=== PATIENT | female | born 2000 ===

== ENCOUNTER 2024-03-15 18:48 | Inpatient (IN) | payer MEDICAID, OTHER ==
[2024-03-15] MEDS ORDERED: MAG HYDROX/AL HYDROX/SIMETH 355 ML BOTTLE PO PRN (19:00)
[2024-03-15] MEDS ORDERED: LORazepam 2 MG/ML INJ IM PRN (19:00)
[2024-03-15] MEDS ORDERED: MAGNESIUM HYDROXIDE 2,400 MG/30 ML CUP PO PRN (19:00)
[2024-03-15] MEDS ORDERED: IBUPROFEN 600 MG TAB PO PRN (19:00)
[2024-03-15] MEDS ORDERED: LORazepam 1 MG TAB PO PRN (19:00)
[2024-03-15] MEDS ORDERED: haloperidoL 5 MG TAB PO PRN (19:00)
[2024-03-15] MEDS ORDERED: HALOPERIDOL LACTATE 5 MG/ML 1 ML VIAL IM PRN (19:00)
[2024-03-15] MEDS ORDERED: ACETAMINOPHEN TAB 325 MG TAB PO PRN (19:00)
[2024-03-15] MEDS: METHADONE 10 MG TAB PO SCH (23:17)
[2024-03-15] MEDS: QUEtiapine 200 MG TAB PO SCH (23:17)
[2024-03-16 07:41] LABS: Basophils % (A) 0 %; Eosinophils # (A) 0.2 k/uL (0-0.7); Eosinophils % (A) 7 %; HCT 37.8 % (34.0-46.0); HGB 12.2 gm/dL (11.4-16.0); Lymphocytes # (A) 1.4 k/uL (1.0-4.8); Lymphocytes % (A) 44 %; MCHC 32.3 g/dL (31.0-37.0); MCV 86.5 fL (80.0-100.0); Monocytes # (A) 0.1 k/uL (0-1.0); Monocytes % (A) 4 %; Neutrophils # (A) 1.4 k/uL (1.3-7.7); Neutrophils % (A) 43 %; Platelet Count 155 k/uL (150-450); RBC 4.37 m/uL (3.80-5.40); RDW 13.6 % (11.5-15.5); WBC 3.3 k/uL (3.8-10.6)
[2024-03-16 08:53] LABS: ALT 9 U/L (4-34); AST 14 U/L (14-36); African American GFR (CKD) >90 (>60 ml/min/1.73 sqM); Albumin 3.5 g/dL (3.5-5.0); Alkaline Phosphatase 100 U/L (38-126); Anion Gap 7 mmol/L; Blood Urea Nitrogen 11 mg/dL (7-17); Calcium 9.5 mg/dL (8.4-10.2); Carbon Dioxide 26 mmol/L (22-30); Chloride 105 mmol/L (98-107); Glucose 88 mg/dL (74-99); Non-African American GFR(CKD) >90 (>60 ml/min/1.73 sqM); Potassium 4.2 mmol/L (3.5-5.1); Sodium 138 mmol/L (137-145); Total Bilirubin 0.4 mg/dL (0.2-1.3); Total Protein 6.1 g/dL (6.3-8.2)
[2024-03-16] MEDS: NICOTINE 14MG/24HR PATCH TRANSDERM SCH (12:40)
[2024-03-16] MEDS: DULoxetine HCL 30 MG CAPSULE.DR PO SCH (12:40)
[2024-03-16] MEDS: METHADONE 10 MG TAB PO ONE (12:41)
--- NOTE | 2024-03-16 12:41 | P.HP ---
Psychiatric H&P - . H&P Date: 03/16/24 History & Physical: Allergies Allergy/AdvReac Type Severity Reaction Status Date / Time No Known Allergies Allergy Verified 03/15/24 18:50 Vital Signs Temp 98 F 03/15/24 23:23 Pulse 96 03/15/24 23:23 Resp 14 03/15/24 23:23 BP 120/83 03/15/24 23:23 Pulse Ox 97 03/15/24 23:23 FiO2 Intake & Output 03/15/24 03/16/24 03/16/24 18:59 06:59 18:59 Weight 52 kg 52.673 kg Laboratory Last Values WBC 3.3 k/uL (3.8-10.6) L 03/16/24 07:20 RBC 4.37 m/uL (3.80-5.40) 03/16/24 07:20 Hgb 12.2 gm/dL (11.4-16.0) 03/16/24 07:20 Hct 37.8 % (34.0-46.0) 03/16/24 07:20 MCV 86.5 fL (80.0-100.0) 03/16/24 07:20 MCH 28.0 pg (25.0-35.0) 03/16/24 07:20 MCHC 32.3 g/dL (31.0-37.0) 03/16/24 07:20 RDW 13.6 % (11.5-15.5) 03/16/24 07:20 Plt Count 155 k/uL (150-450) 03/16/24 07:20 MPV 8.0 03/16/24 07:20 Neutrophils % 43 % 03/16/24 07:20 Lymphocytes % 44 % 03/16/24 07:20 Monocytes % 4 % 03/16/24 07:20 Eosinophils % 7 % 03/16/24 07:20 Basophils % 0 % 03/16/24 07:20 Neutrophils # 1.4 k/uL (1.3-7.7) 03/16/24 07:20 Lymphocytes # 1.4 k/uL (1.0-4.8) 03/16/24 07:20 Monocytes # 0.1 k/uL (0-1.0) 03/16/24 07:20 Eosinophils # 0.2 k/uL (0-0.7) 03/16/24 07:20 Basophils # 0.0 k/uL (0-0.2) 03/16/24 07:20 Sodium 138 mmol/L (137-145) 03/16/24 07:20 Potassium 4.2 mmol/L (3.5-5.1) 03/16/24 07:20 Chloride 105 mmol/L (98-107) 03/16/24 07:20 Carbon Dioxide 26 mmol/L (22-30) 03/16/24 07:20 Anion Gap 7 mmol/L 03/16/24 07:20 BUN 11 mg/dL (7-17) 03/16/24 07:20 Creatinine 0.68 mg/dL (0.52-1.04) 03/16/24 07:20 Est GFR (CKD-EPI)AfAm >90 (>60 ml/min/1.73 sqM) 03/16/24 07:20 Est GFR (CKD-EPI)NonAf >90 (>60 ml/min/1.73 sqM) 03/16/24 07:20 Glucose 88 mg/dL (74-99) 03/16/24 07:[address] Glu mg/dL 97 mg/dL 03/16/24 07:20 Hemoglobin A1c 5.0 % (<=6.0) 03/16/24 07:20 Calcium 9.5 mg/dL (8.4-10.2) 03/16/24 07:20 Total Bilirubin 0.4 mg/dL (0.2-1.3) 03/16/24 07:20 AST 14 U/L (14-36) 03/16/24 07:20 ALT 9 U/L (4-34) 03/16/24 07:20 Alkaline Phosphatase 100 U/L (38-126) 03/16/24 07:20 Total Protein 6.1 g/dL (6.3-8.2) L 03/16/24 07:20 Albumin 3.5 g/dL (3.5-5.0) 03/16/24 07:20 TSH 6.080 mIU/L (0.465-4.680) H 03/16/24 07:20 03/16/24 11:54 IDENTIFYING DATA: Patient is a 24-year-old female, single, lives with her mother and stepfather and also brother. She has 1 kid. She is unemployed HPI: Patient was a transfer from [facility] arrived yesterday to the mental health unit. According to EPS note "Pt transferred from [facility]. Pt became overwhelmed at home after an argument with her mother. Pt took an entire bottle of Flexeril in a suicide attempt. Pt is very tearful, minimizes attempt. No signs of macarena, denies HI. Pt was discharged from rehab 2 weeks ago for treatment for cocaine use and has had past suicide attempts. Pt goes to a Methadone clinic". patient was agreeable to speak to hand sign writer today. Patient was fairly cooperative today during conversation. She states that she tried to overdose as a suicide attempt by overdosing on 60 tablets of Flexeril. Claims that she also took her methadone that morning at 120 mg. She was found by her mother at home the EMS was called brought to the hospital. States that she was intubated and in the ICU for several days. She states that she has been finding it difficult to stay clean and sober. Claims that she has been feeling very overwhelmed claims that she has been dealing with a lot of anxiety lately. States that she is feeling also impulsive in nature and also was describing history of pot possible manic episodes with a lot of energy flight of ideas decreased need for sleep. States that she currently she is feeling more depressed, reporting anxiety. States that she feels her medications are not helping her enough. Denying any paranoia at this time. Patient denies any suicidal or homicidal ideations intent or plan. At this time patient denies any auditory or visual hallucinations. Patient denies any flight of ideas racing thoughts and increased in goal directed behavior. Patient admits to using Xanax off the streets, claims that she has been taking 2 mg tablets about once a day. States that she is also on methadone 120 mg daily dosing at [facility] in [place]. Claims that she also smokes cigarettes. She states that she has a history of IV drug use PAST PSYCHIATRIC HISTORY: Patient has a history of IV drug use, mood disorder, anxiety. She states that she was previously on Seroquel and Zoloft. States that the Zoloft has not been helping her much however the Seroquel does help her. She claims that she was last psychiatrically hospitalized at [facility] several years ago. Patient denies any psychiatric outpatient follow-up. States that at the age of [age] years old she attempted to cut herself. PMH: Claims that she does have hepatitis C however believes that it is inactive ALLERGIES: as per EMR CHEMICAL DEPENDENCY HISTORY: as per HPI FAMILY PSYCHIATRIC/SUBSTANCE USE HISTORY: Claims that there is significant mental illness in her family, claims that there is a lot of depression and other issues in her father side. States that her mother has likely borderline personality disorder. Claims that her grandmother has depression and anxiety SOCIAL HISTORY: Patient was born and raised in [facility] and then moved to [place] where she currently lives. States that she completed up to 11th grade in school. States that she lives with her mother mindi and brother in the house. She has 1 kid. She is unemployed, she is single. MENTAL STATUS EXAM: General Appearance: Patient appears to be thin, stated age is alert, directable, and attempts to cooperate. Patient appears to have poor hygiene and grooming. Behavior: Patient is seated without any agitated behavior. Attempts to cooperate. Fair eye contact Speech: Patient's speech is fluent and nonpressured. Mood/Affect: Patient reports their mood is "depressed and anxious", affect is congruent and constricted. Suicidality/Homicidality: Patient denies having any homicidal ideation intent or plan. Denies any suicidal ideations intent or plan Perceptions: Patient denies any visual hallucinations and denies any auditory hallucinations Though content/process: There is no evidence of any delusional thought content and thought process is linear and goal-directed. Focused on her treatment and medications Memory and concentration: AOX3, grossly intact for the purposes of this session. Can spell "WORLD" backwards Judgment and insight: Poor STRENGTHS/WEAKNESSES: strength is that patient is resilient. Weakness is that patient has poor judgment and is impulsive INTELLECT: Average IMPRESSIONS: Suicide attempt by overdose of medications Depressive disorder unspecified, rule out bipolar depression Anxiety disorder unspecified Opioid use disorder, currently on agonist therapy Benzodiazepine abuse Nicotine dependence PLAN: -Patient is admitted under voluntary status to MHU for stabilization of psychiatric symptoms and safety. Patient has signed adult voluntary form and medication consent and is placed in patient's chart. -Medications : Start Cymbalta 30 mg daily for mood/anxiety, increase Seroquel to 250 mg nightly for mood stabilization/insomnia. Patient's home dose of methadone is 120 mg daily however patient has been off this dose for several days. This dose has been verified by nurses with biomed. Will increase dose to 100 mg daily and attempt to increase further with the goal of 120 mg daily back to her regular dose. -EKG ordered -HIV and hepatitis panel ordered. Patient signed consent for HIV testing and provided brochure -Ativan and Haldol PRN for agitation/aggression -Patient was counselled on substance abuse and desired to cut back on use and Will offer patient subtance use rehab -Patient was informed of the risks, benefits and side effects of the medication and patient verbally consented to taking the medications. Patient signed med consent form and was placed in chart. -Internal Medicine consult to perform medical evaluation and physical. -NRT -nicotine patch -SW on board for discharge planning. Encourage patient to participate in groups to work on coping skills. 03/16/24 12:33
[2024-03-16 16:07] LABS: LDL Cholesterol,Calculated 69.6 mg/dL (0.0-131.0)
[2024-03-16] MEDS: QUEtiapine 100 MG TAB PO SCH (20:26)
--- NOTE | 2024-03-16 21:10 | P.MDCNMH ---
<Tate Byrnes - Last Filed: 03/16/24 22:55> History of Present Illness H&P Date: 03/16/24 History of present illness; 24-year-old female arrives to the mental health unit following hospitalization at [facility] following a suicide attempt in which she took an entire bottle of Flexeril. She had previously been discharged from rehab approximately 2 weeks ago for treatment for cocaine use and she has had previous suicide attempts. Additionally she attends a methadone clinic. Patient denies any suicidal or homicidal ideations intent or plan. She admits to using Xanax which emerges off the streets, 2 mg tablets about once daily. She also takes methadone 120 mg daily (via dosing at [facility] in [place]). She has a history of IV drug use. She still smokes cigarettes. At time of in [facility] patient admitted to the having thin, grayish vaginal discharge. Additionally, she mentioned being to to begin new cycle of treatment for her chronic hepatitis C with Mavyret. Otherwise, she has no current complaints. REVIEW OF SYSTEMS: All systems reviewed, pertinent positives and negatives noted in HPI. All other symptoms are negative. PHYSICAL EXAMINATION: Vitals reviewed GENERAL: No acute distress. Well developed, well nourished. HEENT: Pupils are round and equally reacting to light. EOMI. No scleral icterus. Normocephalic, atraumatic. CARDIOVASCULAR: S1 and S2 present. No murmurs, rubs, or gallops. PULMONARY: Chest is clear to auscultation, no wheezing, rhonchi, or crackles. MUSCULOSKELETAL: No apparent joint swelling and deformities. EXTREMITIES: No apparent cyanosis, clubbing, or pedal edema. NEUROLOGICAL: The patient is alert and oriented x3, Gross neurological examination did not reveal any focal deficits. 5/5 strength bilateral UE and LE; CN2-12 intact, without gross abnormality. SKIN: No rash noted. Assessment and plan 24-year-old female present at the health unit as a transfer from [facility] where she was hospitalized following a suicide attempt in which she took an entire bottle of Flexeril. #Leukopenia -On arrival WBCs 3.3 -Hepatitis acute panel and HIV tests currently pending #Bacterial vaginosis -Treatment started with Flagyl 500 mg p.o. twice daily Chronic Medical Conditions #Nicotine dependence -Maintained on nicotine patch 14 mg/24 hr #Chronic hepatitis C infection -Maintained at home on Mavyret -Due to start next 8-week cycle of treatment (patient states that she has medication at home) #Suicidal ideation/attempt -Psychological medications per the primary psychiatry team Code status: Full code Patient is stable from medical stand point Past Medical History Additional Past Medical History / Comment(s): Hep C, HIV exposure History of Any Multi-Drug Resistant Organisms: None Reported Smoking Status: Current every day smoker Past Alcohol Use History: None Reported Past Drug Use History: Cocaine, Heroin Medications and Allergies Home Medications Medication Instructions Recorded Confirmed Type QUEtiapine [SEROquel] 200 mg PO HS 03/15/24 03/15/24 History Methadone HCl [Methadone Intensol] 120 mg PO DAILY 03/16/24 03/16/24 History Allergies Allergy/AdvReac Type Severity Reaction Status Date / Time No Known Allergies Allergy Verified 03/15/24 18:50 Physical Exam Vitals: Vital Signs Temp Pulse Resp BP Pulse Ox 03/16/24 12:41 93 100/66 03/15/24 23:23 98 F 96 14 120/83 97 Intake and Output 03/16/24 03/16/24 03/16/24 06:59 14:59 22:59 Other: Weight 52.673 kg Results CBC & Chem 7: 03/16/24 07:20 03/16/24 07:20 Labs: Abnormal Lab Results - Last 24 Hours (Table) 03/16/24 03/16/24 Range/Units 07:20 07:20 WBC 3.3 L (3.8-10.6) k/uL Total Protein 6.1 L (6.3-8.2) g/dL Triglycerides 231.00 H (0.00-149.00) mg/dL VLDL Cholesterol, Calc 46.20 H (5.00-40.00) mg/dL HDL Cholesterol 32.20 L (40.00-60.00) mg/dL TSH 6.080 H (0.465-4.680) mIU/L <Mary Alice Gandhi - Last Filed: 03/17/24 01:05> History of Present Illness I have seen and evaluated the patient today. I Discussed the case with the resident and agree with the resident's findings I edited the assessment and plan as necessary as documented in the resident's note. Physical Exam Vitals: Vital Signs Pulse BP 03/16/24 12:41 93 100/66 Cranial Nerve Examination - Cranial Nerves Cranial Nerve II- Optic: Intact Cranial Nerve III- Oculomotor: Intact Cranial Nerve IV- Trochlear: Intact Cranial Nerve V- Trigeminal: Intact Cranial Nerve - Abducens: Intact Cranial Nerve VII- Facial: Intact Cranial Nerve VIII- Auditory: Intact Cranial Nerve IX- Glossopharyngeal: Intact Cranial Nerve X- Vagus: Intact Cranial Nerve XI- Accessory: Intact Cranial Nerve XII- Hypoglossal: Intact Results CBC & Chem 7: 03/16/24 07:20 03/16/24 07:20 Labs: Abnormal Lab Results - Last 24 Hours (Table) 03/16/24 03/16/24 Range/Units 07:20 07:20 WBC 3.3 L (3.8-10.6) k/uL Total Protein 6.1 L (6.3-8.2) g/dL Triglycerides 231.00 H (0.00-149.00) mg/dL VLDL Cholesterol, Calc 46.20 H (5.00-40.00) mg/dL HDL Cholesterol 32.20 L (40.00-60.00) mg/dL TSH 6.080 H (0.465-4.680) mIU/L
[2024-03-17] MEDS: METHADONE 10 MG TAB PO SCH (08:45)
--- NOTE | 2024-03-17 09:49 | P.PN ---
Progress Note - Text Progress Note Date: 03/17/24 Interval History: Patient was seen today for psychiatric follow up. She was interacting with ot her patients today. She claims that she is still feeling fairly anxious, claims that her mood has been improving mildly. Denying any problems with her medications at this time. States that she has tried BuSpar in the past however was willing to try Vistaril as needed today for anxiety. Claims that she was able to sleep about 6 or 7 hours last night. He claims that she is going to some groups. At this time is not reporting any suicidal homicidal ideations intent or plan, denying any auditory or visual hallucinations. MENTAL STATUS EXAM: General Appearance: Patient appears to be thin, stated age is alert, directable, and attempts to cooperate. Patient appears to have mildly improving hygiene and grooming. Behavior: Patient is seated without any agitated behavior. Attempts to rodríguez ate. Fair eye contact Speech: Patient's speech is fluent and nonpressured. Mood/Affect: Patient reports their mood is "mostly anxious", affect is congruent and constricted. Suicidality/Homicidality: Patient denies having any homicidal ideation intent or plan. Denies any suicidal ideations intent or plan Perceptions: Patient denies any visual hallucinations and denies any auditory hallucinations Though content/process: There is no evidence of any delusional thought content and thought process is linear and goal-directed. Focused on her treatment and medications Memory and concentration: AOX3, grossly intact for the purposes of this session Judgment and insight: Poor, improving mildly IMPRESSIONS: Suicide attempt by overdose of medications Depressive disorder unspecified, rule out bipolar depression Anxiety disorder unspecified Opioid use disorder, currently on agonist therapy Benzodiazepine abuse Nicotine dependence PLAN: -Patient is admitted under voluntary status to MHU for stabilization of psychiatric symptoms and safety. Patient has signed adult voluntary form and medication consent and is placed in patient's chart. -Medications : Increase Cymbalta 60 mg daily for mood/anxiety, Seroquel to 250 mg nightly for mood stabilization/insomnia. Patient's home dose of methadone is 120 mg daily however patient has been off this dose for several days. This dose has been verified by nurses with biomed. Continue with 100 mg daily and attempt to increase further with the goal of 120 mg daily back to her regular dose. -Vistaril as needed for anxiety -EKG reviewed -HIV and hepatitis panel ordered. Awaiting results -Ativan and Haldol PRN for agitation/aggression -NRT -nicotine patch -SW on board for discharge planning. Encourage patient to participate in groups to work on coping skills. hopeful for discharge early next week
[2024-03-17] MEDS: metroNIDAZOLE 500 MG TAB PO SCH (09:52)
[2024-03-17] MEDS: NICOTINE GUM (POLACRILEX) 2 MG GUM BUCCAL PRN (09:53)
[2024-03-17] MEDS: hydrOXYzine pamoate 25 MG CAP PO PRN (09:54)
[2024-03-17 14:01] LABS: Hepatitis A Antibody IgM Nonreactive (Nonreactive); Hepatitis B Core IgM Nonreactive (Nonreactive); Hepatitis B Surface Antigen Nonreactive (Nonreactive); Hepatitis C IgG Antibody Reactive (Nonreactive)
[2024-03-18] MEDS: DULoxetine HCL 60 MG CAPSULE.DR PO SCH (08:47)
--- NOTE | 2024-03-18 10:15 | P.PN ---
Progress Note - Text Progress Note Date: 03/18/24 Interval History: Patient was seen today for psychiatric follow up. Patient appears to be fairly visible on the unit. She states that she is doing a bit better today, was reflecting back on her overdose suicide attempt and was regretting it. She spoke about different coping skills and wanting to do better for herself. She claims that her mood is mildly improving, anxiety is mildly improving. States that she slept fairly last night. We spoke about adjusting her medications which she is okay with. Not reporting any side effects at this time. Claims that she was able to sleep about 6 or 7 hours last night. He claims that she is going to some groups. At this time is not reporting any suicidal homicidal ideations intent or plan, denying any auditory or visual hallucinations. MENTAL STATUS EXAM: General Appearance: Patient appears to be thin, stated age is alert, directable, and attempts to cooperate. Patient appears to have mildly improving hygiene and grooming. Behavior: Patient is seated without any agitated behavior. Attempts to cooperate. Fair eye contact Speech: Patient's speech is fluent and nonpressured. Mood/Affect: Patient reports their mood is "a bit better", affect is congruent and constricted. Proving mildly Suicidality/Homicidality: Patient denies having any homicidal ideation intent or plan. Denies any suicidal ideations intent or plan Perceptions: Patient denies any visual hallucinations and denies any auditory hallucinations Though content/process: There is no evidence of any delusional thought content and thought process is linear and goal-directed. Focused on her treatment and medications Memory and concentration: AOX3, grossly intact for the purposes of this session Judgment and insight: Improving mildly IMPRESSIONS: Suicide attempt by overdose of medications Depressive disorder unspecified, rule out bipolar depression Anxiety disorder unspecified Opioid use disorder, currently on agonist therapy Benzodiazepine abuse Nicotine dependence PLAN: -Patient is admitted under voluntary status to MHU for stabilization of psychiatric symptoms and safety. Patient has signed adult voluntary form and medication consent and is placed in patient's chart. -Medications : Cymbalta 60 mg daily for mood/anxiety, increase Seroquel 300 mg n ightly for mood stabilization/insomnia. Patient's home dose of methadone is 120 mg daily however patient has been off this dose for several days. This dose has been verified by nurses with biomed. Increase methadone to 110 mg daily and attempt to increase further with the goal of 120 mg daily back to her regular dose. -Vistaril as needed for anxiety -EKG reviewed -HIV pending , hep c ab -positive -Ativan and Haldol PRN for agitation/aggression -NRT - nicotine patch -SW on board for discharge planning. Encourage patient to participate in groups to work on coping skills. hopeful for discharge early next week
[2024-03-18 15:27] LABS: HIV 2 AB Non-Reactive (Non-Reactive); HIV AB P24 Non-Reactive (Non-Reactive); HIV P24 AG Non-Reactive (Non-Reactive)
[2024-03-18] MEDS: QUEtiapine 100 MG TAB PO SCH (20:33)
[2024-03-19] MEDS: METHADONE 10 MG TAB PO SCH (08:01)
[2024-03-19] MEDS ORDERED: diphenhydrAMINE 25 MG CAP PO PRN (11:23)
--- NOTE | 2024-03-19 11:41 | P.PN ---
Progress Note - Text Progress Note Date: 03/19/24 Interval history: Patient was seen laying down in the lounge watching television and was direct able and agreeable to speak with science writer. Patient claims that she is still dealing with anxiety at high levels. We spoke about other options. She was fairly focused on benzodiazepines at this time, we spoke about the risks of this and likelihood of abuse. She states that she was sleeping on and off last night, was agreeable to try Benadryl tonight. We spoke about other medications to help her with anxiety and she was open to it. States that her mood has been improving. At this time patient denies any suicidal or homicidal ideations intent or plan. Denies any Auditory or visual hallucinations. Patient denies any side effects from the medications and has been compliant with meds. Mental status exam: General Appearance: [Patient appears to be thin, stated age is alert, directable, and cooperative.] Behavior: [No agitated behavior. Patient is calm and directable] Speech: Patient's speech is fluent and nonpressured. Mood/Affect: Mood is improving mildly, affect is congruent and constricted. Suicidality/Homicidality: Patient denies having any suicidal or homicidal ideation intent or plan. Perceptions: Patient denies any auditory or visual hallucinations. Though content/process: [There is no evidence of any delusional thought content and thought process is linear and goal-directed.] Memory and concentration: AOX3, grossly intact for the purposes of this session Judgment and insight: Poor, improving mildly Assessment/Plan: Continue with current diagnosis. Patient continues to meet criteria for inpatient psychiatric admission for symptom stabilization and safety.[Patient will be maintained on current psychotropic medication regimen, added Benadryl as needed for insomnia. BuSpar 10 mg 3 times daily for anxiety..] Monitor for medication compliance and for any psychotropic medication side effects. Will continue to monitor ongoing response to treatment. Encouraged participation in milieu.
[2024-03-19] MEDS: busPIRone HCl 10 MG TAB PO SCH (11:47)
[2024-03-19] MEDS ORDERED: hydrOXYzine pamoate 25 MG CAP PO PRN (12:08)
[2024-03-19] MEDS: DULoxetine HCL 30 MG CAPSULE.DR PO SCH (20:18)
[2024-03-19] MEDS: LORazepam 0.5 MG TAB PO PRN (20:20)
[2024-03-20] MEDS: DULoxetine HCL 60 MG CAPSULE.DR PO SCH ×2 (08:44→21:08)
--- NOTE | 2024-03-20 10:45 | P.PN ---
Progress Note - Text Progress Note Date: 03/20/24 Interval history: Patient was seen sitting in the lounge today watching television. She was ag reeable to speak to comic writer today. She claims that her mood and anxiety have been mildly improving. States that she is still using the Ativan. She has not been using much of the Vistaril as needed. We spoke about the dangers, abuse potential of benzodiazepines however patient was argumentative about it and states that "I am just going to see a psychiatrist I will give it to me anyways" and refused to acknowledge comic writer's concern about abuse potential given her history of substance abuse. She does claim that she slept last night fairly well, has been going to groups interacting with others. She was fairly focused on discharge tomorrow. States that her mood has been improving. At this time patient denies any suicidal or homicidal ideations intent or plan. Denies any Auditory or visual hallucinations. Patient denies any side effects from the medications and has been compliant with meds. Mental status exam: General Appearance: Patient appears to be thin, stated age is alert, directable, and cooperative. Behavior: No agitated behavior. Patient is calm and directable Speech: Patient's speech is fluent and nonpressured. Mood/Affect: Mood is improving mildly, affect is congruent and constricted. Suicidality/Homicidality: Patient denies having any suicidal or homicidal ideation intent or plan. Perceptions: Patient denies any auditory or visual hallucinations. Though content/process: There is no evidence of any delusional thought content and thought process is linear and goal-directed. Focused on her medications Memory and concentration: AOX3, grossly intact for the purposes of this session Judgment and insight: Poor, improving mildly Assessment/Plan: Continue with current diagnosis. Patient continues to meet criteria for inpatient psychiatric admission for symptom stabilization and safety. Patient will be maintained on current psychotropic medication regimen, with the exception of increasing methadone to home dose of 120 mg daily. Monitor for medication compliance and for any psychotropic medication side effects. Will continue to monitor ongoing response to treatment. Encouraged participation in milieu. Hopeful for discharge tomorrow if patient is i mproving.
[2024-03-21 07:10] VITALS: BP 107/69; PULSE 70; RESP 14; TEMP 97.7
[2024-03-21] MEDS: METHADONE 10 MG TAB PO SCH (07:57)
--- NOTE | 2024-03-21 10:18 | P.DS ---
Providers Date of admission: 03/15/24 22:39 Expected date of discharge: 03/21/24 Attending physician: Brian Velazquez MD Consults: 03/15/24 19:00 Consult Physician Routine Consulting Provider: Fede Meyers Consult Reason/Comments: History and physical and medical follow up Do you want consulting provider notified?: Yes Primary care physician: Stated None - Discharge Diagnosis(es) (1) Suicide attempt by drug overdose Current Visit: Yes Status: Acute Priority: High (2) Depressive disorder Current Visit: Yes Status: Acute Priority: High (3) Anxiety disorder Current Visit: Yes Status: Acute Priority: High (4) Opioid dependence on agonist therapy Current Visit: Yes Status: Acute Priority: Medium (5) Benzodiazepine abuse Current Visit: Yes Status: Acute Priority: Medium (6) Nicotine dependence Current Visit: Yes Status: Acute Priority: Low Hospital Course: Admission HPI: Admission note was completed by advertising writer "patient is a 24-year-old female, single, lives with her mother and stepfather and also brother. She has 1 kid. She is unemployed. Patient was a transfer from [facility] arrived yesterday to the mental health unit. According to EPS note "Pt transferred from [facility]. Pt became overwhelmed at home after an argument with her mother. Pt took an entire bottle of Flexeril in a suicide attempt. Pt is very tearful, minimizes attempt. No signs of macarena, denies HI. Pt was discharged from rehab 2 weeks ago for treatment for cocaine use and has had past suicide attempts. Pt goes to a Methadone clinic". patient was agreeable to speak to advertising writer today. Patient was fairly cooperative today during conversation. She states that she tried to overdose as a suicide attempt by overdosing on 60 tablets of Flexeril. Claims that she also took her methadone that morning at 120 mg. She was found by her mother at home the EMS was called brought to the hospital. States that she was intubated and in the ICU for several days. She states that she has been finding it difficult to stay clean and sober. Claims that she has been feeling very overwhelmed claims that she has been dealing with a lot of anxiety lately. States that she is feeling also impulsive in nature and also was describing history of pot possible manic episodes with a lot of energy flight of ideas decreased need for sleep. States that she currently she is feeling more depress ed, reporting anxiety. States that she feels her medications are not helping her enough. Denying any paranoia at this time. Patient denies any suicidal or homicidal ideations intent or plan. At this time patient denies any auditory or visual hallucinations. Patient denies any flight of ideas racing thoughts and increased in goal directed behavior. Patient admits to using Xanax off the streets, claims that she has been taking 2 mg tablets about once a day. States that she is also on methadone 120 mg daily dosing at [facility] in [place]. Claims that she also smokes cigarettes. She states that she has a history of IV drug use." Hospital course: Upon admission to the unit patient was directable and agreeable to commence treatment and signed adult voluntary form. Patient got along well with other patients on the unit and followed unit protocol. Patient was compliant with the medications and denied any side effects throughout hospital course. Patient was started on Cymbalta increased to dose of 60 mg twice daily for mood/anxiety, Seroquel increased to dose of 300 mg nightly for mood stabilization/insomnia, patient was restarted back on methadone daily dosing, gradually increased to her home dose of 120 mg daily for opiate dependence, Vistaril as needed for anxiety. Patient spoke of her stressors and engaged in therapy both group and individual. Patient was also seen by medical team for history and physical exam. Patient was tested for HIV and hepatitis panel, HIV test was negative, she did however have positive antibodies for hepatitis C which she has been informed about. Throughout the course of the hospitalization patient gradually improved with regards to mood, anxiety, suicidal thoughts, sleep and returned back to their baseline level of functioning. On the day of discharge patient denied any suicidal or homicidal ideations intent or plan denied any auditory or visual hallucinations. Patient endorsed wanting to live for their health and kids and family. The patient denied any access to guns or weapons. Patient denied any paranoia and did not endorse any delusions. Patient does have a significant history of substance abuse and was counseled on abstaining from all substances including alcohol and marijuana. Patient was offered however declined inpatient substance-abuse rehab. Patient was also counseled on the medications and need for regular compliance and was encouraged to follow-up with their outpatient appointment for mental health and also for primary care. Prior to discharge a family meeting will be arranged by social sciences lecturer to answer any questions and ensure safety upon discharge incuding making sure that guns/weapons are either removed from the home or locked away. Mental status exam: General Appearance: Patient appears to be thin, stated age is alert, pleasant, and cooperative. Patient is in no acute distress and has improved hygiene and grooming Behavior: Patient is calmly seated without any agitated behavior. Speech: Patient's speech is fluent and nonpressured. Mood/Affect: Patient reports their mood is "good", affect is congruent and euthymic. Suicidality/Homicidality: Patient denies having any suicidal or homicidal ideation intent or plan. Perceptions: Patient denies any auditory or visual hallucinations. Though content/process: There is no evidence of any delusional thought content and thought process is linear and goal-directed. Memory and concentration: AOX3, grossly intact for the purposes of this session. Can spell "WORLD" backwards correctly. Judgment and insight: Chronically poor, however has improved with guarded prognosis Impression: Suicide attempt by overdose of medications Depressive disorder unspecified rule out bipolar depression Anxiety disorder unspecified Opioid dependence on agonist therapy Benzodiazepine abuse Nicotine dependence Plan: -Continue with discharge today as patient has improved and stabilized psychiatrically and is not currently an imminent threat to themself and/or others. Patient will remain at chronically elevated risk for harm to self and/or others due to their impulsivity and substance abuse. -Continue medications: Cymbalta 60 mg twice daily for mood/anxiety, Seroquel 300 mg nightly for mood stabilization/insomnia, can continue with home dose of methadone 120 mg daily for opiate dependence, she will continue this treatment daily dosing at [facility]. patient will also be given 5 day supply of flagyl for BV. -Patient was counseled on the need for medication compliance and appropriate follow-up at mental health and also primary care for medical issues. Patient verbalized understanding and agreed. -Social work to arrange for and conduct family meeting to ensure safety upon discharge and answer any questions/concerns. also to ensure safe home environment that guns/weapons are either removed from the home or locked away. Social work also to arrange for patients follow up appointments for psychiatric care along with follow up with primary care provider. -Patient counseled on abstaining from recreational drugs and marijuana and alcohol. Was informed/educated on the adverse effects on their physical and mental health. Patient verbally agreed and understood. Patient was offered substance abuse treatment however declined at this time. -Patient was instructed to return to the hospital or seek immediate medical care if their psychiatric or medical symptoms do worsen or reoccur. Allergies Allergy/AdvReac Type Severity Reaction Status Date / Time No Known Allergies Allergy Verified 03/15/24 18:50 Laboratory Results WBC 3.3 k/uL (3.8-10.6) L 03/16/24 07:20 RBC 4.37 m/uL (3.80-5.40) 03/16/24 07:20 Hgb 12.2 gm/dL (11.4-16.0) 03/16/24 07:20 Hct 37.8 % (34.0-46.0) 03/16/24 07:20 MCV 86.5 fL (80.0-100.0) 03/16/24 07:20 MCH 28.0 pg (25.0-35.0) 03/16/24 07:20 MCHC 32.3 g/dL (31.0-37.0) 03/16/24 07:20 RDW 13.6 % (11.5-15.5) 03/16/24 07:20 Plt Count 155 k/uL (150-450) 03/16/24 07:20 MPV 8.0 03/16/24 07:20 Neutrophils % 43 % 03/16/24 07:20 Lymphocytes % 44 % 03/16/24 07:20 Monocytes % 4 % 03/16/24 07:20 Eosinophils % 7 % 03/16/24 07:20 Basophils % 0 % 03/16/24 07:20 Neutrophils # 1.4 k/uL (1.3-7.7) 03/16/24 07:20 Lymphocytes # 1.4 k/uL (1.0-4.8) 03/16/24 07:20 Monocytes # 0.1 k/uL (0-1.0) 03/16/24 07:20 Eosinophils # 0.2 k/uL (0-0.7) 03/16/24 07:20 Basophils # 0.0 k/uL (0-0.2) 03/16/24 07:20 Sodium 138 mmol/L (137-145) 03/16/24 07:20 Potassium 4.2 mmol/L (3.5-5.1) 03/16/24 07:20 Chloride 105 mmol/L (98-107) 03/16/24 07:20 Carbon Dioxide 26 mmol/L (22-30) 03/16/24 07:20 Anion Gap 7 mmol/L 03/16/24 07:20 BUN 11 mg/dL (7-17) 03/16/24 07:20 Creatinine 0.68 mg/dL (0.52-1.04) 03/16/24 07:20 Est GFR (CKD-EPI)AfAm >90 (>60 ml/min/1.73 sqM) 03/16/24 07:20 Est GFR (CKD-EPI)NonAf >90 (>60 ml/min/1.73 sqM) 03/16/24 07:20 Glucose 88 mg/dL (74-99) 03/16/24 07:[address] Glu mg/dL 97 mg/dL 03/16/24 07:20 Hemoglobin A1c 5.0 % (<=6.0) 03/16/24 07:20 Calcium 9.5 mg/dL (8.4-10.2) 03/16/24 07:20 Total Bilirubin 0.4 mg/dL (0.2-1.3) 03/16/24 07:20 AST 14 U/L (14-36) 03/16/24 07:20 ALT 9 U/L (4-34) 03/16/24 07:20 Alkaline Phosphatase 100 U/L (38-126) 03/16/24 07:20 Total Protein 6.1 g/dL (6.3-8.2) L 03/16/24 07:20 Albumin 3.5 g/dL (3.5-5.0) 03/16/24 07:20 Triglycerides 231.00 mg/dL (0.00-149.00) H 03/16/24 07:20 Cholesterol 148.00 mg/dL (0.00-200.00) 03/16/24 07:20 LDL Cholesterol, Calc 69.6 mg/dL (0.0-131.0) 03/16/24 07:20 VLDL Cholesterol, Calc 46.20 mg/dL (5.00-40.00) H 03/16/24 07:20 HDL Cholesterol 32.20 mg/dL (40.00-60.00) L 03/16/24 07:20 Cholesterol/HDL Ratio 4.60 Ratio 03/16/24 07:20 TSH 6.080 mIU/L (0.465-4.680) H 03/16/24 07:20 Free T4 0.91 ng/dL (0.78-2.19) 03/17/24 10:39 Hepatitis A IgM Ab Nonreactive (Nonreactive) 03/17/24 10:39 Hep Bs Antigen Nonreactive (Nonreactive) 03/17/24 10:39 Hep B Core IgM Ab Nonreactive (Nonreactive) 03/17/24 10:39 Hep C IgG Ab Reactive (Nonreactive) A 03/17/24 10:39 HIV-1 Antibody Non-Reactive (Non-Reactive) 03/17/24 10:39 HIV Ag/Ab Interpret 03/17/24 10:39 HIV p24 Antibody Non-Reactive (Non-Reactive) 03/17/24 10:39 HIV-2 Antibody Non-Reactive (Non-Reactive) 03/17/24 10:39 HIV P24 Antigen Non-Reactive (Non-Reactive) 03/17/24 10:39 Vital Signs Temp 97.7 F 03/21/24 06:33 Pulse 70 03/21/24 06:33 Resp 14 03/21/24 06:33 BP 107/69 03/21/24 06:33 Pulse Ox 98 03/21/24 06:33 FiO2 Intake & Output 03/20/24 03/21/24 03/21/24 18:59 06:59 18:59 Weight 53.1 kg Patient Condition at Discharge: Stable Plan - Discharge Summary New Discharge Prescriptions: New diphenhydrAMINE [Benadryl] 25 mg PO HS PRN 14 Days #14 cap PRN Reason: Insomnia metroNIDAZOLE [Flagyl] 500 mg PO BID 5 Days #10 tab Ibuprofen [Motrin] 600 mg PO Q6HR PRN tab PRN Reason: Moderate Pain (Scale 4 To 6) DULoxetine HCL [Cymbalta] 60 mg PO BID 30 Days #60 cap Nicotine Gum (Polacrilex) [Nicorette] 2 mg BUCCAL Q4HR PRN 30 Days #180 pieceofgum PRN Reason: Nicotine Cravings QUEtiapine FUMARATE [SEROquel] 300 mg PO HS 14 Days #14 tablet hydrOXYzine pamoate [Vistaril] 50 mg PO DAILY PRN 14 Days #28 cap PRN Reason: Anxiety Continue Methadone HCl [Methadone Intensol] 120 mg PO DAILY Discontinued QUEtiapine [SEROquel] 200 mg PO HS Discharge Medication List Methadone HCl [Methadone Intensol] 120 mg PO DAILY 03/16/24 [History] DULoxetine HCL [Cymbalta] 60 mg PO BID 30 Days #60 cap 03/21/24 [Rx] Ibuprofen [Motrin] 600 mg PO Q6HR PRN tab 03/21/24 [Rx] Nicotine Gum (Polacrilex) [Nicorette] 2 mg BUCCAL Q4HR PRN 30 Days #180 pieceofgum 03/21/24 [Rx] QUEtiapine FUMARATE [SEROquel] 300 mg PO HS 14 Days #14 tablet 03/21/24 [Rx] diphenhydrAMINE [Benadryl] 25 mg PO HS PRN 14 Days #14 cap 03/21/24 [Rx] hydrOXYzine pamoate [Vistaril] 50 mg PO DAILY PRN 14 Days #28 cap 03/21/24 [Rx] metroNIDAZOLE [Flagyl] 500 mg PO BID 5 Days #10 tab 03/21/24 [Rx] Follow up Appointment(s)/Referral(s): [facility], [facility], [facility] [Other] - 1 Week Patient Instructions/Handouts: How to Stop Smoking (DC), Depression (DC), Anxiety (GEN) Activity/Diet/Wound Care/Special Instructions: [facility] Discharge Info Avoid the use of street drugs and alcohol. Take all medications as prescribed. When you are in need of refills on your medications, please contact your outpatient medical provider and/or outpatient psychiatrist. Please go to your scheduled outpatient appointments for aftercare treatment. If symptoms return or become worse, call the crisis line at or and/or visit the nearest emergency room for assistance. National Suicide and Crisis Lifeline - call or text 988 Discharge Disposition: HOME SELF-CARE
== END 2024-03-21 12:39 | disposition home or self-care (01) | DRG 817 ==
LOC: 3MHU 22:39
PROVIDERS: ADMIT Psychiatry & Neurology Psychiatry; ATTEND Psychiatry & Neurology Psychiatry
DX: T48.1X2A Poisoning by skeletal muscle relaxants [neuromuscular blocking agents], intentional self-harm, initial encounter (principal); F32.A Depression, unspecified; F11.20 Opioid dependence, uncomplicated; F13.10 Sedative, hypnotic or anxiolytic abuse, uncomplicated; B18.2 Chronic viral hepatitis C; F41.9 Anxiety disorder, unspecified; F17.210 Nicotine dependence, cigarettes, uncomplicated; F14.91 Cocaine use, unspecified, in remission; D72.819 Decreased white blood cell count, unspecified; N76.0 Acute vaginitis; G47.00 Insomnia, unspecified; R94.6 Abnormal results of thyroid function studies; Z20.6 Contact with and (suspected) exposure to human immunodeficiency virus [HIV]; Z56.0 Unemployment, unspecified; Z91.51 Personal history of suicidal behavior; Z81.8 Family history of other mental and behavioral disorders; Z79.899 Other long term (current) drug therapy
CPT/HCPCS: 80053; 80061; 80074; 83036; 84439; 84443; 85025; 87390; 93005